=== PATIENT | female | born 1970 | race Asian ===

== ENCOUNTER → 2020-03-31 | Outpatient (CLI) | payer MEDICAID ==
[~2020-03-31] MED LIST: ASCO500C15 PO; GLUC-230 PO; LEVO112T7 PO; MULT-1241 PO; tumeric PO
== END | disposition home or self-care (01) ==
LOC: LAB 08:18
PROVIDERS: ATTEND Surgery
DX: Z01.812 Encounter for preprocedural laboratory examination (principal); Z20.828 Contact with and (suspected) exposure to other viral communicable diseases
CPT/HCPCS: C9803; U0003

== ENCOUNTER → 2020-04-02 | Day surgery (SDC) | payer MEDICAID ==
[~2020-04-02] VITALS: Ht 157.5 cm; Wt 85.7 kg
[~2020-04-02] MED LIST changes: +BUPIVACAINE HCL 0.5% (5MG/ML) 50ML ONE; +CEFAZOLIN SODIUM 1000MG/VIAL ONE; +DEXAMETHASONE 4MG/ML 1ML VIAL ONE; +FENTANYL CITRATE/PF 50MCG/ML 2ML VIAL ONE; +GLYCOPYRROLATE 0.2 MG/ML 2ML VIAL ONE; +HYDROMORPHONE HCL/PF 2MG/ML CPJ ONE; +INDOCYANINE GREEN 25 MG VIAL IV ONE; +KETOROLAC 30MG/ML VIAL ONE; +LACTATED RINGERS 1,000 ML IV SCH; +LIDOCAINE HCL/PF 1% 10 MG/ML 5ML VIAL ONE; +MIDAZOLAM HCL 2 MG/2 ML VIAL ONE; +NEOSTIGMINE METHYLSULFATE 1MG/ML 10 ML VIAL ONE; +ONDANSETRON HCL 4MG/2ML INJ ONE; +PROPOFOL 200MG/20ML VIAL IV ONE; +ROCURONIUM BROMIDE 10MG/ML VIAL 5ML IV ONE; +SKIN ADHESIVE 0.7 GM EA TOP ONE; +SUCCINYLCHOLINE CHLORIDE 200MG/10ML IV ONE; +TRAMADOL 50MG TABLET PO PRN
[2020-04-02 05:30] LABS: UCG SCREEN NEGATIVE
[2020-04-02] MEDS: HYDROMORPHONE HCL/PF 2MG/ML CPJ IV PRN ×4 (09:04→10:05)
[2020-04-02 11:28] VITALS: BP 121/67
== END | disposition home or self-care (01) ==
LOC: OR 05:19
PROVIDERS: ATTEND Surgery
DX: K80.10 Calculus of gallbladder with chronic cholecystitis without obstruction (principal); E03.9 Hypothyroidism, unspecified; Z79.899 Other long term (current) drug therapy; Z98.890 Other specified postprocedural states; Z91.013 Allergy to seafood; Z88.8 Allergy status to other drugs, medicaments and biological substances
CPT/HCPCS: 47562; 81025; 88304; J0330; J0690; J1100; J1170; J1885; J2250; J2405; J2704; J2710; J3010; J3490; Q9957; S2900